=== PATIENT | male | born 1990 | race Two or more races ===

== ENCOUNTER 2024-06-26 17:17 | Emergency (ER) | payer OTHER ==
[~2024-06-26] VITALS: Ht 170.2 cm; Wt 57.0 kg
--- NOTE | 2024-06-26 18:48 | ED.PDOC ---
Back pain HPI HPI Comments 14-year-old male presents to the ED chief complaint right ankle/foot pain. 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 He states proximally 1 week ago he was walking in his backyard which has a leveled lost his footing and twisted his right ankle. Since pain has been getting worse to the right ankle medial aspect into the medial aspect of the right foot. Describes pain as achy and intermittent sharpness 6/10 on pain scale. Does deny numbness or weakness or any other known injury. Using [id number] ibuprofen with some help. Refuses pain medication at this time. Chief Complaint: Lower Extremity Time Seen by MD: 18:21 Reviewed Notes: Nurses Notes, Medications, Allergies Allergies: Coded Allergies: NO KNOWN ALLERGIES (Unverified , 06/26/24) Information Source: Patient Mode of Arrival: Ambulatory Past Medical History PAST MEDICAL HISTORY: Denies Surgical History: Denies all surgeries Family History Family History: Reviewed,noncontributory to illness Social History Smoker: Non-Smoker Alcohol: Denies ETOH Use Drugs: Denies Drug Use Constitutional: denies: chills, diaphoresis, fatigue, fever, malaise, sweats, weakness, others EENTM: denies: blurred vision, double vision, ear bleeding, ear discharge, ear drainage, ear pain, ear ringing, eye pain, eye redness, hearing loss, mouth pain, mouth swelling, nasal discharge, nose bleeding, nose congestion, nose pain, photophobia, tearing, throat pain, throat swelling, voice changes, others Respiratory: denies: cough, hemoptysis, orthopnea, SOB at rest, shortness of breath, SOB with excertion, stridor, wheezing, others Cardiovascular: denies: chest pain, dizzy spells, diaphoresis, Dyspnea on exertion, edema, irregular heart beat, left arm pain, lightheadedness, palpitations, PND, syncope, others Gastrointestinal: denies: abdomen distended, abdominal pain, blood streaked bowels, constipated, diarrhea, dysphagia, difficulty swallowing, hematemesis, m gustavo, nausea, poor appetite, poor fluid intake, rectal bleeding, rectal pain, vomiting, others Genitourinary: denies: burning, dysuria, flank pain, frequency, hematuria, incontinence, penile discharge, penile sore, pain, testicle pain, testicle swelling, urgency, others Neurological: denies: dizziness, fainting, headache, left sided numbness, left sided weakness, numbness, paresthesia, pre-existing deficit, right sided numbness, right sided weakness, seizure, speech problems, tingling, tremors, weakness, others Musculoskeletal: reports: others (Right foot and ankle pain/injury); denies: back pain, gout, joint pain, joint swelling, muscle pain, muscle stiffness, neck pain Physical Exam General Appearance: No Apparent Distress, Normal HEENT: Pharynx Normal Neck: Full Range of Motion, Non-Tender Respiratory: Lungs Clear, No Respiratory Distress, Normal Breath Sounds Cardiovascular: No Murmur, Normal Peripheral Pulses, Regular Rate/Rhythm Breast Exam: Deferred Gastrointestinal: Non Tender, Soft Genitalia: Deferred Pelvic: Deferred Rectal: Deferred Extremities: Normal capillary refill, Normal inspection, Normal range of motion, Non-tender, No pedal edema Musculoskeletal : Location: Right Extremity Location: Ankle (Moderate tenderness palpated over medial malleolus into medial right foot. No noted ecchymosis abrasions or lacerations. 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 Was a procedure done?: No Back Pain Differential Dx Differential Diagnosis: Fracture, Musculoskeletal Pain X-Ray, Labs, Meds, VS Vital Signs Date Time Temp Pulse Resp B/P (MAP) Pulse Ox O2 Delivery O2 Flow Rate FiO2 06/26/24 19:40 98.3 76 16 125/66 (85) 98 98.3 06/26/24 18:36 82 20 100 Room Air 06/26/24 18:36 98.7 82 20 129/88 (102) 100 98.7 06/26/24 17:43 98.7 82 20 129/88 (102) 100 98.7 X-Ray, Labs, Meds, VS Comment RIGHT ANKLE X-RAY SHOWS NO FRACTURES, OSSEOUS LESIONS, OR DISLOCATIONS. PATIENT REFUSED CRUTCHES AND SPLINT OR JUANA WRAP AT THIS TIME. ADVISED PATIENT ON RICE. [id number] MOTRIN NEEDED FOR PAIN PER LABELED DOSING INSTRUCTIONS. FOLLOW UP WITH PCP IN 2-3 DAYS NECESSARY. CONSIDER REPEAT IMAGING OR MRI IF SYMPTOMS PERSIST. ER RETURN PRECAUTIONS GIVEN PATIENT INDICATES UNDERSTANDING AND AGREES WITH DISCHARGE PLAN OF CARE. Time of 1ST Reevaluation: 19:44 Reevaluation 1ST: Improved Patient Education/Counseling: Diagnosis, Treatment, Prognosis, Need For Follow Up Family Education/Counseling: No Family Present Departure 1 Departure Time of Disposition: 19:43 Impression: Primary Impression: Sprain of right medial ankle joint Qualified Codes: S93.421A - Sprain of deltoid ligament of right ankle, initial encounter Disposition: 01 HOME / SELF CARE / HOMELESS Condition: Stable Discharged With: Self Critical Care Note Critical Care Time?: No Stability Stability form required: ANGIE Laird Jun 26, 2024 18:48
[2024-06-26 19:40] VITALS: BP 125/66; PULSE 76; RESP 16; TEMP 98.3; O2SAT 98
--- NOTE | 2024-06-26 19:42 | DVH ---
CLINICAL INDICATION: INJURY/PAIN MEDIAL ASPECT OF ANKLE/FOOT TECHNIQUE: 3 radiographic views of the right ankle were obtained. Comparison: None FINDINGS/IMPRESSION: There is no evidence of acute fracture or dislocation. The visualized joint space is well maintained. The alignment is anatomical. There is no radiopaque foreign body.
== END 2024-06-26 19:53 | disposition home or self-care (01) ==
LOC: ER 17:17
DX: S93.421A Sprain of deltoid ligament of right ankle, initial encounter (principal); X58.XXXA Exposure to other specified factors, initial encounter; Y93.01 Activity, walking, marching and hiking; Y92.096 Garden or yard of other non-institutional residence as the place of occurrence of the external cause; Y99.8 Other external cause status
CPT/HCPCS: 73610